=== PATIENT | female | born 1975 | race Caucasian/White ===

== ENCOUNTER 2019-11-12 14:36 | Emergency (ER) | payer MEDICARE ==
[~2019-11-12] VITALS: Ht 157.5 cm; Wt 73.0 kg
[2019-11-12] MEDS ORDERED: ONDANSETRON HCL 4MG/2ML INJ IV STA (16:26)
[2019-11-12] MEDS ORDERED: MORPHINE SULFATE 4 MG/ML CPJ (NOT FOR IM USE) IV STA (16:26)
[2019-11-12 18:18] VITALS: BP 108/78
[2019-11-12 19:03] LABS: BASOPHILS % 0.9 % (0.0-2.0); EOSINOPHILS % 2.2 % (0.0-5.0); HEMATOCRIT. 32.6 % (36.0-48.0); HEMOGLOBIN. 11.2 g/dL (12.0-16.0); LYMPHOCYTES % 30.6 % (20.0-50.0); MEAN CORPUSCULAR HEMOGLOBIN 31.9 pg (28.0-32.0); MEAN CORPUSCULAR VOLUME 92.7 fL (81.0-99.0); MEAN PLATELET VOLUME 8.7 fl (7.4-10.4); MONOCYTES % 7.3 % (2.0-8.0); PLATELET 144 x1000/uL (130-400); RED BLOOD CELL COUNT 3.51 mill/uL (4.2-5.4); RED CELL DISTRIBUTION WIDTH 13.7 % (11.6-14.6)
[2019-11-12 19:04] LABS: CHLORIDE 122 mEq/L (98-107)
[2019-11-12 19:05] LABS: HCG SCREEN NEGATIVE
[2019-11-12 19:08] LABS: INR 1.1; PROTHROMBIN TIME 11.2 sec (9.6-11.0)
[2019-11-12 19:10] LABS: CLARITY URINE TURBID (CLEAR); COLOR URINE YELLOW (YELLOW); KETONES URINE NEGATIVE (NEGATIVE); LEUKOCYTE ESTERASE URINE 2+ (NEGATIVE); NITRITE URINE NEGATIVE (NEGATIVE); OCCULT BLOOD URINE 3+ (NEGATIVE); PROTEIN URINE NEGATIVE (NEGATIVE); SPECIFIC GRAVITY URINE 1.021 (1.005-1.030)
[2019-11-12] MEDS ORDERED: ASPIRIN 325MG EC TABLET PO ONE (19:45)
== END 2019-11-12 20:39 | disposition home or self-care (01) ==
LOC: ER 14:36
DX: R10.84 Generalized abdominal pain (principal); Z90.49 Acquired absence of other specified parts of digestive tract; Z88.6 Allergy status to analgesic agent
CPT/HCPCS: 36415; 74176; 80053; 81003; 81025; 83690; 84703; 85025; 85610; 96374; 96375; 99284; J2270; J2405

== ENCOUNTER 2020-11-17 15:11 | Inpatient (IN) | payer OTHER ==
[~2020-11-17] VITALS: Ht 157.5 cm; Wt 70.3 kg
[~2020-11-17 15:11] MED LIST: CEPH250C2 MT; NAPR-1176 MT; ONDA4TAB5 MT; PROT20 MT
[2020-11-17] MEDS ORDERED: MORPHINE SULFATE 4 MG/ML CPJ (NOT FOR IM USE) IV STA (23:43)
[2020-11-17] MEDS ORDERED: ONDANSETRON HCL 4MG/2ML INJ IV STA (23:43)
[2020-11-17] MEDS ORDERED: SODIUM CHLORIDE 0.9% 1,000 ML IV ONE (23:45)
[2020-11-18 00:40] LABS: BASOPHILS % 0.9 % (0.0-2.0); HEMATOCRIT. 41.2 % (36.0-48.0); HEMOGLOBIN. 14.1 g/dL (12.0-16.0); LYMPHOCYTES % 38.5 % (20.0-50.0); MEAN CORPUSCULAR HEMOGLOBIN 31.4 pg (28.0-32.0); MEAN CORPUSCULAR VOLUME 91.8 fL (81.0-99.0); MEAN PLATELET VOLUME 8.1 fl (7.4-10.4); MONOCYTES % 6.8 % (2.0-8.0); NEUTROPHILS % 50.8 % (40.0-76.0); PLATELET 203 x1000/uL (130-400); RED BLOOD CELL COUNT 4.48 mill/uL (4.2-5.4); RED CELL DISTRIBUTION WIDTH 13.6 % (11.6-14.6)
[2020-11-18 00:42] LABS: CHLORIDE 113 mEq/L (98-107)
[2020-11-18 00:46] LABS: HCG SCREEN NEGATIVE
[2020-11-18 00:47] LABS: ETHANOL BLOOD < 10 mg/dL
[2020-11-18 01:23] LABS: PROTHROMBIN TIME 10.9 sec (9.6-11.0)
[2020-11-18 01:35] LABS: CLARITY URINE TURBID (CLEAR); COLOR URINE YELLOW (YELLOW); KETONES URINE TRACE (NEGATIVE); LEUKOCYTE ESTERASE URINE 2+ (NEGATIVE); NITRITE URINE NEGATIVE (NEGATIVE); OCCULT BLOOD URINE TRACE (NEGATIVE); PROTEIN URINE NEGATIVE (NEGATIVE)
[2020-11-18 01:45] LABS: *AMPHETAMINES SCREEN URINE NEGATIVE (NEGATIVE); *BARBITURATES SCREEN URINE NEGATIVE (NEGATIVE); *BENZODIAZEPINES SCREEN URINE NEGATIVE (NEGATIVE); *COCAINE SCREEN URINE NEGATIVE (NEGATIVE)
[2020-11-18 01:46] LABS: CANNABINOID URINE SCREEN NEGATIVE (NEGATIVE); METHADONE URINE SCREEN NEGATIVE (NEGATIVE); PHENCYCLIDINE URINE SCREEN NEGATIVE (NEGATIVE)
[2020-11-18 01:52] LABS: OPIATES URINE SCREEN PRESUMTIVE POSITIVE (NEGATIVE)
[2020-11-18] MEDS ORDERED: CEFTRIAXONE 1 G PREMIX 50 ML IV ONE (02:00)
[2020-11-18] MEDS ORDERED: MORPHINE SULFATE 4 MG/ML CPJ (NOT FOR IM USE) IV STA (02:06)
[2020-11-18] MEDS ORDERED: ONDANSETRON HCL 4MG/2ML INJ IV STA (02:06)
[2020-11-18] MEDS ORDERED: IOHEXOL-300 100 ML BOTTLE ONE (06:06)
[2020-11-18] MEDS: MORPHINE SULFATE 2 MG/ML CPJ (NOT FOR IM USE) IV PRN ×4 (06:56→20:39)
[2020-11-18] MEDS ORDERED: IPRATROPIUM/ALBUTEROL 0.5-3(2.5)MG/3ML NEB NEB PRN (10:30)
[2020-11-18] MEDS ORDERED: DIPHENHYDRAMINE 50MG/ML VIAL IV PRN (10:30)
[2020-11-18] MEDS: LEVOFLOXACIN 500MG PREMIX 100 ML IV SCH ×2 (10:30→11:28)
[2020-11-18] MEDS ORDERED: LORAZEPAM 0.5MG TABLET PO PRN (10:30)
[2020-11-18] MEDS ORDERED: ONDANSETRON HCL 4MG/2ML INJ IV PRN (10:30)
[2020-11-18] MEDS: DEXT 5%/0.45% NACL 1000ML 1,000 ML IV SCH ×2 (10:30→23:43)
[2020-11-18] MEDS ORDERED: NALOXONE HCL 0.4MG/ML VIAL IV PRN (10:45)
[2020-11-18] MEDS ORDERED: ENOXAPARIN 40MG/0.4ML SYR SUBCUT SCH (11:00)
[2020-11-18] MEDS: FAMOTIDINE 20MG/2ML VIAL IV SCH ×2 (11:28→20:39)
[2020-11-18 21:06] LABS: TOTAL IRON BINDING CAPACITY 246 ug/dL (250-450)
[2020-11-19] MEDS: MORPHINE SULFATE 2 MG/ML CPJ (NOT FOR IM USE) IV PRN ×5 (01:09→22:57)
[2020-11-19] MEDS: FAMOTIDINE 20MG/2ML VIAL IV SCH ×2 (09:00→21:03)
[2020-11-19] MEDS ORDERED: PROPOFOL 200MG/20ML VIAL IV ONE (11:02)
[2020-11-19] MEDS ORDERED: ONDANSETRON HCL 4MG/2ML INJ IV PRN (11:30)
[2020-11-19] MEDS ORDERED: MORPHINE SULFATE 2 MG/ML CPJ (NOT FOR IM USE) IV PRN (11:30)
[2020-11-19] MEDS ORDERED: PROT40 MT (12:59)
[2020-11-19] MEDS ORDERED: ONDA4TAB5 MT (12:59)
[2020-11-19 13:00] VITALS: BP 108/68
[2020-11-19 14:00] VITALS: BP 108/68
[2020-11-19] MEDS: DEXT 5%/0.45% NACL 1000ML 1,000 ML IV SCH (14:34)
[2020-11-19 16:00] VITALS: BP 102/70
[2020-11-19 16:55] LABS: BASOPHILS % 0.4 % (0.0-2.0); EOSINOPHILS % 3.6 % (0.0-5.0); HEMATOCRIT. 38.2 % (36.0-48.0); HEMOGLOBIN. 13.2 g/dL (12.0-16.0); LYMPHOCYTES % 27.2 % (20.0-50.0); MEAN CORPUSCULAR HEMOGLOBIN 32.4 pg (28.0-32.0); MEAN CORPUSCULAR VOLUME 93.6 fL (81.0-99.0); MEAN PLATELET VOLUME 7.8 fl (7.4-10.4); MONOCYTES % 6.7 % (2.0-8.0); NEUTROPHILS % 62.1 % (40.0-76.0); PLATELET 182 x1000/uL (130-400); RED BLOOD CELL COUNT 4.08 mill/uL (4.2-5.4); RED CELL DISTRIBUTION WIDTH 13.4 % (11.6-14.6)
[2020-11-19] MEDS ORDERED: ACETAMINOPHEN 325MG TABLET PO PRN (17:00)
[2020-11-19] MEDS ORDERED: ACETAMINOPHEN 650MG SUPP PR PRN (17:00)
[2020-11-19 17:01] LABS: INR 1.1; PROTHROMBIN TIME 11.4 sec (9.6-11.0)
[2020-11-19 17:16] LABS: CHLORIDE 114 mEq/L (98-107)
[2020-11-19 17:26] LABS: LDL CHOLESTEROL 79 mg/dL (5-100)
[2020-11-19 17:27] LABS: HDL CHOLESTEROL 52 mg/dL (40-59); T4 FREE 1.09 ng/dL (0.76-1.46)
[2020-11-19 20:00] VITALS: BP 107/76
[2020-11-19 23:48] VITALS: BP 107/76
[2020-11-20] VITALS: BP 93/67
[2020-11-20] MEDS: DEXT 5%/0.45% NACL 1000ML 1,000 ML IV SCH (02:54)
[2020-11-20] MEDS: MORPHINE SULFATE 2 MG/ML CPJ (NOT FOR IM USE) IV PRN (02:55)
[2020-11-20 04:00] VITALS: BP 103/73
== END 2020-11-20 06:10 | disposition home or self-care (01) | DRG 381 ==
LOC: ER 15:11 → MICUSO 11-18 04:49 → 6EST 11-19 09:02
PROVIDERS: ADMIT Internal Medicine; ATTEND Internal Medicine
PROC: 0DB78ZX Excision of Stomach, Pylorus, Via Natural or Artificial Opening Endoscopic, Diagnostic (ICD-10-PCS; principal; 2020-11-19)
DX: K22.11 Ulcer of esophagus with bleeding (principal); N39.0 Urinary tract infection, site not specified; K29.71 Gastritis, unspecified, with bleeding; Z20.822 Contact with and (suspected) exposure to COVID-19; D50.9 Iron deficiency anemia, unspecified; Z98.84 Bariatric surgery status; Z87.19 Personal history of other diseases of the digestive system; Z88.6 Allergy status to analgesic agent; Z88.5 Allergy status to narcotic agent; Z88.8 Allergy status to other drugs, medicaments and biological substances; Z79.2 Long term (current) use of antibiotics; Z79.899 Other long term (current) drug therapy; Z90.49 Acquired absence of other specified parts of digestive tract
CPT/HCPCS: 36415; 71045; 74177; 80053; 80061; 80305; 80320; 81003; 82728; 83540; 83550; 83880; 84439; 84443; 84703; 85025; 87426; 88305; 88312; 88313; 99285; J0696; J1650; J1956; J2270; J2405; J2704; J3490; J7030; Q9967; G0480

== ENCOUNTER 2021-11-04 12:47 | Inpatient (IN) | payer OTHER, MEDICAID ==
[~2021-11-04] VITALS: Ht 157.5 cm; Wt 72.1 kg
[~2021-11-04 12:47] MED LIST changes: -CEPH250C2 MT; +FOSF3PAC MT; -NAPR-1176 MT; -PROT20 MT; +PROT40 MT; +SUCR1TAB30 MT
[2021-11-04] MEDS ORDERED: MORPHINE SULFATE 4 MG/ML CPJ (NOT FOR IM USE) IV ONE ×2 (15:30→20:30)
[2021-11-04] MEDS ORDERED: ONDANSETRON HCL 4MG/2ML INJ IV ONE (15:30)
[2021-11-04 16:46] LABS: BASOPHILS % 0.4 % (0.0-2.0); EOSINOPHILS % 3.3 % (0.0-5.0); HEMATOCRIT. 25.4 % (36.0-48.0); HEMOGLOBIN. 8.4 g/dL (12.0-16.0); LYMPHOCYTES % 34.3 % (20.0-50.0); MEAN CORPUSCULAR HEMOGLOBIN 31.3 pg (28.0-32.0); MEAN CORPUSCULAR VOLUME 94.1 fL (81.0-99.0); MEAN PLATELET VOLUME 7.8 fl (7.4-10.4); MONOCYTES % 7.5 % (2.0-8.0); NEUTROPHILS % 54.5 % (40.0-76.0); PLATELET 112 x1000/uL (130-400); RED CELL DISTRIBUTION WIDTH 13.6 % (11.6-14.6)
[2021-11-04 16:52] LABS: CHLORIDE 112 mEq/L (98-107)
[2021-11-04 17:29] LABS: PROTHROMBIN TIME 10.9 sec (9.6-11.0)
[2021-11-04 18:41] LABS: CLARITY URINE TURBID (CLEAR); COLOR URINE YELLOW (YELLOW); KETONES URINE NEGATIVE (NEGATIVE); LEUKOCYTE ESTERASE URINE 3+ (NEGATIVE); NITRITE URINE NEGATIVE (NEGATIVE); OCCULT BLOOD URINE TRACE (NEGATIVE); PROTEIN URINE NEGATIVE (NEGATIVE); SPECIFIC GRAVITY URINE 1.015 (1.005-1.030)
[2021-11-04] MEDS ORDERED: MORPHINE SULFATE 4 MG/ML CPJ (NOT FOR IM USE) IV STA (20:29)
[2021-11-04] MEDS ORDERED: ONDANSETRON HCL 4MG/2ML INJ IV STA (20:29)
[2021-11-04] MEDS ORDERED: GENTAMICIN 60MG PREMIX 50 ML IV SCH (20:30)
[2021-11-04] MEDS ORDERED: ONDANSETRON HCL 4MG/2ML INJ IM ONE (20:30)
[2021-11-04] MEDS ORDERED: SODIUM CHLORIDE 0.9% 1,000 ML IV ONE (20:30)
[2021-11-04] MEDS ORDERED: ONDANSETRON HCL 4MG/2ML INJ IM NR (21:00)
[2021-11-04] MEDS ORDERED: GENTAMICIN SULFATE 60 MG in SODIUM CHLORIDE 0.9% 50 ML IV NR (21:00)
[2021-11-04] MEDS ORDERED: MORPHINE SULFATE 4 MG/ML CPJ (NOT FOR IM USE) IV NR (21:00)
[2021-11-04] MEDS: ENOXAPARIN 40MG/0.4ML SYR SUBCUT SCH (23:30)
[2021-11-04] MEDS ORDERED: DOCUSATE SODIUM 100MG CAPSULE PO PRN (23:30)
[2021-11-04] MEDS: SODIUM CHLORIDE 0.45% 1,000 ML IV SCH (23:30)
[2021-11-04] MEDS ORDERED: DIPHENHYDRAMINE 50MG/ML VIAL IV PRN (23:30)
[2021-11-04] MEDS ORDERED: MAGNESIUM/ALUMINUM HYDROXIDE/SIMETHICONE 30ML UDC PO PRN (23:30)
[2021-11-04] MEDS ORDERED: CLONIDINE 0.1MG TABLET PO PRN (23:30)
[2021-11-04] MEDS ORDERED: IPRATROPIUM/ALBUTEROL 0.5-3(2.5)MG/3ML NEB HHN PRN (23:30)
[2021-11-04] MEDS ORDERED: HYDRALAZINE 20MG/ML VIAL IV PRN (23:30)
[2021-11-04] MEDS ORDERED: GUAIFENESIN 200MG/10ML SUGAR FREE UDC PO PRN (23:30)
[2021-11-04 23:45] VITALS: BP 103/59
[2021-11-05] MEDS: MORPHINE SULFATE 2 MG/ML CPJ (NOT FOR IM USE) IV PRN ×4 (00:25→18:46)
[2021-11-05] MEDS: SODIUM CHLORIDE 0.45% 1,000 ML IV SCH ×2 (00:30→20:35)
[2021-11-05 04:00] VITALS: BP 105/67
[2021-11-05] MEDS: ONDANSETRON HCL 4MG/2ML INJ IV PRN ×3 (05:17→18:46)
[2021-11-05] MEDS: SODIUM CHLORIDE 0.9% INJ 3ML FLUSH IVF SCH ×3 (06:27→22:49)
[2021-11-05 07:42] LABS: CHLORIDE 112 mEq/L (98-107)
[2021-11-05 08:00] VITALS: BP 98/65
[2021-11-05 12:00] VITALS: BP 105/72
[2021-11-05 15:51] LABS: BASOPHILS % 0.7 % (0.0-2.0); EOSINOPHILS % 3.8 % (0.0-5.0); HEMATOCRIT. 38.1 % (36.0-48.0); HEMOGLOBIN. 12.9 g/dL (12.0-16.0); LYMPHOCYTES % 32.7 % (20.0-50.0); MEAN CORPUSCULAR HEMOGLOBIN 31.6 pg (28.0-32.0); MEAN CORPUSCULAR VOLUME 92.9 fL (81.0-99.0); MEAN PLATELET VOLUME 8.7 fl (7.4-10.4); MONOCYTES % 7.4 % (2.0-8.0); NEUTROPHILS % 55.4 % (40.0-76.0); PLATELET 155 x1000/uL (130-400); RED CELL DISTRIBUTION WIDTH 13.3 % (11.6-14.6)
[2021-11-05 16:22] VITALS: BP 102/64
[2021-11-05 16:53] LABS: TOTAL IRON BINDING CAPACITY 249 ug/dL (250-450)
[2021-11-05 17:08] LABS: *AMPHETAMINES SCREEN URINE NEGATIVE (NEGATIVE); *BARBITURATES SCREEN URINE NEGATIVE (NEGATIVE); *BENZODIAZEPINES SCREEN URINE NEGATIVE (NEGATIVE); *COCAINE SCREEN URINE NEGATIVE (NEGATIVE); CANNABINOID URINE SCREEN NEGATIVE (NEGATIVE); METHADONE URINE SCREEN NEGATIVE (NEGATIVE); PHENCYCLIDINE URINE SCREEN NEGATIVE (NEGATIVE)
[2021-11-05 17:18] LABS: FERRITIN 77 ng/mL (10-291)
[2021-11-05 17:21] LABS: OPIATES URINE SCREEN PRESUMTIVE POSITIVE (NEGATIVE)
[2021-11-05 17:25] LABS: VITAMIN B12 SERUM 576 pg/mL (211-911)
[2021-11-05 17:28] LABS: FOLIC ACID (FOLATE) SERUM > 20.00 ng/mL (>5.38)
[2021-11-05 20:00] VITALS: BP 101/69
[2021-11-05] MEDS: ENOXAPARIN 40MG/0.4ML SYR SUBCUT SCH (22:52)
[2021-11-06] VITALS: BP 100/65
[2021-11-06] MEDS: ONDANSETRON HCL 4MG/2ML INJ IV PRN ×4 (00:41→18:55)
[2021-11-06] MEDS: MORPHINE SULFATE 2 MG/ML CPJ (NOT FOR IM USE) IV PRN ×4 (00:42→19:09)
[2021-11-06 04:00] VITALS: BP 93/61
[2021-11-06] MEDS: SODIUM CHLORIDE 0.9% INJ 3ML FLUSH IVF SCH ×3 (05:24→22:45)
[2021-11-06 08:00] VITALS: BP 91/57
[2021-11-06 12:00] VITALS: BP 93/58
[2021-11-06] MEDS: SODIUM CHLORIDE 0.45% 1,000 ML IV SCH (15:30)
[2021-11-06 16:00] VITALS: BP 98/61
[2021-11-06 20:00] VITALS: BP 95/65
[2021-11-06] MEDS: ENOXAPARIN 40MG/0.4ML SYR SUBCUT SCH (22:45)
[2021-11-07] VITALS: BP 97/67
[2021-11-07] MEDS: MORPHINE SULFATE 2 MG/ML CPJ (NOT FOR IM USE) IV PRN ×4 (00:34→19:32)
[2021-11-07] MEDS: ONDANSETRON HCL 4MG/2ML INJ IV PRN ×4 (00:34→19:33)
[2021-11-07 04:00] VITALS: BP 105/63
[2021-11-07] MEDS: SODIUM CHLORIDE 0.9% INJ 3ML FLUSH IVF SCH ×3 (05:21→21:53)
[2021-11-07 06:27] LABS: BASOPHILS % 0.6 % (0.0-2.0); EOSINOPHILS % 6.2 % (0.0-5.0); HEMATOCRIT. 40.8 % (36.0-48.0); HEMOGLOBIN. 14.1 g/dL (12.0-16.0); LYMPHOCYTES % 30.7 % (20.0-50.0); MEAN CORPUSCULAR HEMOGLOBIN 31.5 pg (28.0-32.0); MEAN CORPUSCULAR VOLUME 91.5 fL (81.0-99.0); MONOCYTES % 8.1 % (2.0-8.0); NEUTROPHILS % 54.4 % (40.0-76.0); PLATELET 165 x1000/uL (130-400); RED BLOOD CELL COUNT 4.45 mill/uL (4.2-5.4); RED CELL DISTRIBUTION WIDTH 12.7 % (11.6-14.6)
[2021-11-07 06:35] LABS: INR 1.1; PROTHROMBIN TIME 11.3 sec (9.6-11.0)
[2021-11-07 07:08] LABS: CHLORIDE 107 mEq/L (98-107)
[2021-11-07 08:00] VITALS: BP 89/57
[2021-11-07] MEDS ORDERED: DEXTROSE 50% WATER 50ML SYRINGE IV NR (08:45)
[2021-11-07] MEDS: SODIUM CHLORIDE 0.45% 1,000 ML IV SCH (11:12)
[2021-11-07 12:00] VITALS: BP 100/68
[2021-11-07 14:20] LABS: HCG SCREEN NEGATIVE
[2021-11-07] MEDS ORDERED: ONDANSETRON HCL 4MG/2ML INJ ONE (14:54)
[2021-11-07] MEDS ORDERED: DEXAMETHASONE 4MG/ML 1ML VIAL ONE (14:54)
[2021-11-07] MEDS ORDERED: PROPOFOL 200MG/20ML VIAL IV ONE (14:55)
[2021-11-07] MEDS ORDERED: MORPHINE SULFATE 2 MG/ML CPJ (NOT FOR IM USE) IV NR (16:15)
[2021-11-07] MEDS ORDERED: ONDANSETRON HCL 4MG/2ML INJ IV NR (16:15)
[2021-11-07] MEDS ORDERED: NALOXONE HCL 0.4MG/ML VIAL IV PRN (16:30)
[2021-11-07] MEDS ORDERED: HYDRALAZINE 10 MG in SODIUM CHLORIDE 0.9% 49.5 ML IV PRN (16:30)
[2021-11-07 20:00] VITALS: BP 99/59
[2021-11-07] MEDS: ENOXAPARIN 40MG/0.4ML SYR SUBCUT SCH (23:30)
[2021-11-08] VITALS: BP 91/59
[2021-11-08] MEDS: MORPHINE SULFATE 2 MG/ML CPJ (NOT FOR IM USE) IV PRN ×4 (01:35→20:16)
[2021-11-08] MEDS: ONDANSETRON HCL 4MG/2ML INJ IV PRN ×4 (01:36→20:13)
[2021-11-08 04:00] VITALS: BP 102/67
[2021-11-08] MEDS: SODIUM CHLORIDE 0.9% INJ 3ML FLUSH IVF SCH ×3 (06:17→20:29)
[2021-11-08 08:00] VITALS: BP 96/60
[2021-11-08] MEDS: SODIUM CHLORIDE 0.45% 1,000 ML IV SCH (08:45)
[2021-11-08 16:00] VITALS: BP 93/59
[2021-11-08] MEDS: SUCRALFATE 1G TABLET PO SCH ×2 (17:20→20:25)
[2021-11-08 20:00] VITALS: BP 96/54
[2021-11-08] MEDS: PANTOPRAZOLE SODIUM 40 MG/VIAL IV SCH (20:28)
[2021-11-08] MEDS: ENOXAPARIN 40MG/0.4ML SYR SUBCUT SCH (23:12)
[2021-11-09] VITALS: BP 97/59
[2021-11-09] MEDS: SODIUM CHLORIDE 0.45% 1,000 ML IV SCH ×2 (03:30→23:39)
[2021-11-09] MEDS: SODIUM CHLORIDE 0.9% INJ 3ML FLUSH IVF SCH ×3 (06:07→21:24)
[2021-11-09] MEDS: ONDANSETRON HCL 4MG/2ML INJ IV PRN ×3 (06:08→19:05)
[2021-11-09] MEDS: MORPHINE SULFATE 2 MG/ML CPJ (NOT FOR IM USE) IV PRN ×3 (06:09→19:06)
[2021-11-09 07:32] LABS: BASOPHILS % 0.5 % (0.0-2.0); EOSINOPHILS % 3.9 % (0.0-5.0); HEMATOCRIT. 39.9 % (36.0-48.0); HEMOGLOBIN. 13.6 g/dL (12.0-16.0); LYMPHOCYTES % 30.7 % (20.0-50.0); MEAN CORPUSCULAR HEMOGLOBIN 31.2 pg (28.0-32.0); MEAN CORPUSCULAR VOLUME 91.4 fL (81.0-99.0); MEAN PLATELET VOLUME 8.4 fl (7.4-10.4); MONOCYTES % 7.1 % (2.0-8.0); NEUTROPHILS % 57.8 % (40.0-76.0); PLATELET 164 x1000/uL (130-400); RED BLOOD CELL COUNT 4.36 mill/uL (4.2-5.4); RED CELL DISTRIBUTION WIDTH 12.9 % (11.6-14.6)
[2021-11-09 07:53] LABS: CHLORIDE 107 mEq/L (98-107)
[2021-11-09 08:00] VITALS: BP 98/59
[2021-11-09] MEDS: PANTOPRAZOLE SODIUM 40 MG/VIAL IV SCH ×2 (09:47→21:24)
[2021-11-09 12:00] VITALS: BP 100/62
[2021-11-09] MEDS: SUCRALFATE 1 G/10 ML UDC PO SCH ×3 (12:20→21:24)
[2021-11-09 16:00] VITALS: BP 98/49
[2021-11-09 19:30] VITALS: BP 133/74
[2021-11-09 20:07] VITALS: BP 100/60
[2021-11-09] MEDS: ENOXAPARIN 40MG/0.4ML SYR SUBCUT SCH (23:30)
[2021-11-10] VITALS (7 sets, daily range): BP systolic 93–98; BP diastolic 52–63
[2021-11-10] MEDS: ONDANSETRON HCL 4MG/2ML INJ IV PRN ×4 (01:34→21:15)
[2021-11-10] MEDS: MORPHINE SULFATE 2 MG/ML CPJ (NOT FOR IM USE) IV PRN ×4 (01:36→21:15)
[2021-11-10] MEDS: SODIUM CHLORIDE 0.9% INJ 3ML FLUSH IVF SCH ×2 (05:07→13:00)
[2021-11-10] MEDS ORDERED: NALOXONE HCL 0.4MG/ML VIAL IV PRN (05:15)
[2021-11-10] MEDS: SUCRALFATE 1 G/10 ML UDC PO SCH ×3 (07:20→17:20)
[2021-11-10] MEDS: PANTOPRAZOLE SODIUM 40 MG/VIAL IV SCH (07:50)
[2021-11-10 09:07] LABS: CHLORIDE 107 mEq/L (98-107)
[2021-11-10] MEDS ORDERED: POTASSIUM CHLORIDE 20MEQ TABLET SR PO NR (11:30)
[2021-11-10] MEDS ORDERED: POTASSIUM CHLORIDE INJ 40 MEQ in DEXT 5% WATER 500 ML IV NR (14:00)
[2021-11-10 14:52] LABS: BASOPHILS % 0.7 % (0.0-2.0); EOSINOPHILS % 5.7 % (0.0-5.0); HEMATOCRIT. 37.5 % (36.0-48.0); LYMPHOCYTES % 24.1 % (20.0-50.0); MEAN CORPUSCULAR HEMOGLOBIN 31.6 pg (28.0-32.0); MEAN CORPUSCULAR VOLUME 91.4 fL (81.0-99.0); MEAN PLATELET VOLUME 8.5 fl (7.4-10.4); MONOCYTES % 7.1 % (2.0-8.0); NEUTROPHILS % 62.4 % (40.0-76.0); PLATELET 151 x1000/uL (130-400); RED BLOOD CELL COUNT 4.11 mill/uL (4.2-5.4); RED CELL DISTRIBUTION WIDTH 12.7 % (11.6-14.6)
== END 2021-11-11 00:45 | disposition home or self-care (01) | DRG 392 ==
LOC: ER 13:48 → ENRESERV 22:50 → 6EST 22:52
PROVIDERS: ADMIT Internal Medicine; ATTEND Internal Medicine
PROC: 0DB78ZX Excision of Stomach, Pylorus, Via Natural or Artificial Opening Endoscopic, Diagnostic (ICD-10-PCS; principal; 2021-11-07)
DX: K20.90 Esophagitis, unspecified without bleeding (principal); N39.0 Urinary tract infection, site not specified; E44.1 Mild protein-calorie malnutrition; K29.50 Unspecified chronic gastritis without bleeding; K44.9 Diaphragmatic hernia without obstruction or gangrene; N20.0 Calculus of kidney; D50.9 Iron deficiency anemia, unspecified; E86.0 Dehydration; D72.819 Decreased white blood cell count, unspecified; Z20.822 Contact with and (suspected) exposure to COVID-19; Z98.84 Bariatric surgery status; Z90.49 Acquired absence of other specified parts of digestive tract; Z88.1 Allergy status to other antibiotic agents; Z97.5 Presence of (intrauterine) contraceptive device; Z87.19 Personal history of other diseases of the digestive system; Z98.891 History of uterine scar from previous surgery; Z88.0 Allergy status to penicillin; Z88.2 Allergy status to sulfonamides; Z88.6 Allergy status to analgesic agent; Z88.8 Allergy status to other drugs, medicaments and biological substances; Z79.899 Other long term (current) drug therapy; Z68.29 Body mass index [BMI] 29.0-29.9, adult
CPT/HCPCS: 36415; 74176; 80048; 80053; 80305; 81003; 82607; 82728; 82746; 82962; 83540; 83550; 84703; 85025; 85044; 87426; 88305; 88312; 88313; 99285; C9113; J1100; J1580; J1642; J1650; J2270; J2405; J2704; J3480; J7030; J7060

== ENCOUNTER 2021-12-19 16:12 | Inpatient (IN) | payer OTHER, MEDICAID ==
[~2021-12-19] VITALS: Ht 157.5 cm; Wt 72.6 kg
[2021-12-19] MEDS ORDERED: ONDANSETRON HCL 4MG/2ML INJ IV STA ×2 (18:02→20:48)
[2021-12-19] MEDS ORDERED: MORPHINE SULFATE 4 MG/ML CPJ (NOT FOR IM USE) IV STA ×2 (18:02→20:48)
[2021-12-19] MEDS ORDERED: SODIUM CHLORIDE 0.9% 1,000 ML IV ONE (18:15)
[2021-12-19 20:09] LABS: BASOPHILS % 0.5 % (0.0-2.0); EOSINOPHILS % 2.2 % (0.0-5.0); HEMATOCRIT. 40.8 % (36.0-48.0); HEMOGLOBIN. 13.2 g/dL (12.0-16.0); LYMPHOCYTES % 28.7 % (20.0-50.0); MEAN CORPUSCULAR HEMOGLOBIN 30.7 pg (28.0-32.0); MEAN PLATELET VOLUME 8.4 fl (7.4-10.4); MONOCYTES % 8.7 % (2.0-8.0); NEUTROPHILS % 59.9 % (40.0-76.0); PLATELET 197 x1000/uL (130-400); RED BLOOD CELL COUNT 4.29 mill/uL (4.2-5.4); RED CELL DISTRIBUTION WIDTH 13.3 % (11.6-14.6)
[2021-12-19 20:18] LABS: CHLORIDE 116 mEq/L (98-107)
[2021-12-19 20:22] LABS: HCG SCREEN NEGATIVE
[2021-12-19 20:24] LABS: CLARITY URINE TURBID (CLEAR); COLOR URINE YELLOW (YELLOW); KETONES URINE NEGATIVE (NEGATIVE); LEUKOCYTE ESTERASE URINE 2+ (NEGATIVE); NITRITE URINE NEGATIVE (NEGATIVE); OCCULT BLOOD URINE NEGATIVE (NEGATIVE); PH URINE 8.5 (4.5-8.0); PROTEIN URINE NEGATIVE (NEGATIVE); SPECIFIC GRAVITY URINE 1.015 (1.005-1.030)
[2021-12-19 20:27] LABS: ETHANOL BLOOD < 10 mg/dL
[2021-12-19 20:36] LABS: *AMPHETAMINES SCREEN URINE NEGATIVE (NEGATIVE); *BARBITURATES SCREEN URINE NEGATIVE (NEGATIVE); *BENZODIAZEPINES SCREEN URINE NEGATIVE (NEGATIVE); *COCAINE SCREEN URINE NEGATIVE (NEGATIVE); CANNABINOID URINE SCREEN NEGATIVE (NEGATIVE); METHADONE URINE SCREEN NEGATIVE (NEGATIVE); PHENCYCLIDINE URINE SCREEN NEGATIVE (NEGATIVE)
[2021-12-19 20:37] LABS: OPIATES URINE SCREEN PRESUMTIVE POSITIVE (NEGATIVE)
[2021-12-19] MEDS ORDERED: GENTAMICIN SULFATE 80 MG in SODIUM CHLORIDE 0.9% 100 ML IV STA (22:12)
[2021-12-19] MEDS ORDERED: GENTAMICIN 80MG PREMIX 100 ML IV NR (22:45)
[2021-12-20] VITALS (7 sets, daily range): BP systolic 90–109; BP diastolic 55–65
[2021-12-20] MEDS ORDERED: LACTULOSE 20G/30ML UDC PO PRN (00:30)
[2021-12-20] MEDS ORDERED: LACTULOSE 20G/30ML UDC PO NR (00:30)
[2021-12-20] MEDS ORDERED: ONDANSETRON HCL 4MG/2ML INJ IV PRN (00:30)
[2021-12-20] MEDS ORDERED: MORPHINE SULFATE 2 MG/ML CPJ (NOT FOR IM USE) IV PRN (00:30)
[2021-12-20] MEDS ORDERED: MULT-1146 PO (01:46)
[2021-12-20] MEDS: MORPHINE SULFATE 2 MG/ML CPJ (NOT FOR IM USE) IV PRN ×3 (06:26→18:45)
[2021-12-20] MEDS ORDERED: PANTOPRAZOLE 40MG DR TABLET PO SCH (09:00)
[2021-12-20] MEDS: GENTAMICIN 100MG PREMIX 50 ML IV SCH ×2 (12:47→21:34)
[2021-12-20] MEDS: PANTOPRAZOLE SODIUM 40 MG/VIAL IV SCH (17:25)
[2021-12-20 20:21] LABS: BASOPHILS % 0.6 % (0.0-2.0); EOSINOPHILS % 3.1 % (0.0-5.0); HEMATOCRIT. 39.8 % (36.0-48.0); HEMOGLOBIN. 13.2 g/dL (12.0-16.0); LYMPHOCYTES % 27.7 % (20.0-50.0); MEAN CORPUSCULAR HEMOGLOBIN 31.1 pg (28.0-32.0); MEAN CORPUSCULAR VOLUME 94.2 fL (81.0-99.0); MEAN PLATELET VOLUME 8.2 fl (7.4-10.4); MONOCYTES % 7.6 % (2.0-8.0); PLATELET 183 x1000/uL (130-400); RED BLOOD CELL COUNT 4.23 mill/uL (4.2-5.4); RED CELL DISTRIBUTION WIDTH 13.1 % (11.6-14.6)
[2021-12-20] MEDS ORDERED: DIPHENHYDRAMINE 25MG CAPSULE PO PRN (23:30)
[2021-12-21] VITALS: BP 90/62
[2021-12-21] MEDS: DIPHENHYDRAMINE 50MG/ML VIAL IV PRN ×2 (00:46→21:59)
[2021-12-21] MEDS: MORPHINE SULFATE 2 MG/ML CPJ (NOT FOR IM USE) IV PRN ×4 (02:53→21:52)
[2021-12-21 04:00] VITALS: BP 96/65
[2021-12-21 07:26] LABS: CHLORIDE 110 mEq/L (98-107)
[2021-12-21 07:41] LABS: GENTAMICIN RANDOM 1.5 ug/mL
[2021-12-21 08:00] VITALS: BP 99/62
[2021-12-21] MEDS: GENTAMICIN 100MG PREMIX 50 ML IV SCH ×2 (09:04→20:59)
[2021-12-21] MEDS: PANTOPRAZOLE SODIUM 40 MG/VIAL IV SCH ×2 (09:04→16:43)
[2021-12-21 12:00] VITALS: BP 93/63
[2021-12-21] MEDS: SODIUM CHLORIDE 0.9% 1,000 ML IV SCH (15:47)
[2021-12-21 16:00] VITALS: BP 92/57
[2021-12-21 20:00] VITALS: BP 91/54
[2021-12-22] VITALS: BP 92/60
[2021-12-22] MEDS: MORPHINE SULFATE 2 MG/ML CPJ (NOT FOR IM USE) IV PRN ×4 (03:59→22:17)
[2021-12-22 04:00] VITALS: BP 93/61
[2021-12-22] MEDS: SODIUM CHLORIDE 0.9% 1,000 ML IV SCH (06:13)
[2021-12-22 07:58] LABS: BASOPHILS % 0.5 % (0.0-2.0); EOSINOPHILS % 3.2 % (0.0-5.0); HEMATOCRIT. 38.3 % (36.0-48.0); HEMOGLOBIN. 12.8 g/dL (12.0-16.0); LYMPHOCYTES % 36.2 % (20.0-50.0); MEAN CORPUSCULAR HEMOGLOBIN 30.8 pg (28.0-32.0); MEAN CORPUSCULAR VOLUME 92.1 fL (81.0-99.0); MEAN PLATELET VOLUME 8.1 fl (7.4-10.4); MONOCYTES % 9.8 % (2.0-8.0); NEUTROPHILS % 50.3 % (40.0-76.0); PLATELET 164 x1000/uL (130-400); RED BLOOD CELL COUNT 4.16 mill/uL (4.2-5.4); RED CELL DISTRIBUTION WIDTH 12.7 % (11.6-14.6)
[2021-12-22 08:00] VITALS: BP 94/58
[2021-12-22 08:06] LABS: INR 1.1; PROTHROMBIN TIME 11.4 sec (9.6-11.0)
[2021-12-22 08:13] LABS: CHLORIDE 109 mEq/L (98-107)
[2021-12-22] MEDS: PANTOPRAZOLE SODIUM 40 MG/VIAL IV SCH ×2 (08:44→16:12)
[2021-12-22] MEDS: GENTAMICIN 100MG PREMIX 50 ML IV SCH (08:44)
[2021-12-22] MEDS: DEXT 5%/0.9% NACL 1,000 ML IV SCH (09:31)
[2021-12-22] MEDS ORDERED: DEXTROSE 50% WATER 50ML SYRINGE IV NR (09:45)
[2021-12-22] MEDS ORDERED: PROPOFOL 200MG/20ML VIAL IV ONE ×2 (10:31→11:14)
[2021-12-22] MEDS ORDERED: SIMETHICONE 40 MG/0.6 ML 15ML ONE (10:40)
[2021-12-22] MEDS: MEPERIDINE HCL/PF 25MG/ML CPJ IV PRN ×2 (11:55→12:15)
[2021-12-22 12:00] VITALS: BP 98/63
[2021-12-22] MEDS: SUCRALFATE 1 G/10 ML UDC PO SCH ×4 (12:10→21:00)
[2021-12-22 16:00] VITALS: BP 94/57
[2021-12-22] MEDS ORDERED: DEXTROSE 50% WATER 50ML SYRINGE IV PRN (17:15)
[2021-12-22] MEDS: METOCLOPRAMIDE HCL 10MG/2ML VIAL IV SCH ×2 (17:18→21:00)
[2021-12-22] MEDS: BLOOD SUGAR DIAGNOSTIC STRIP TEST SCH ×2 (17:26→21:00)
[2021-12-22 20:00] VITALS: BP 97/55
[2021-12-22] MEDS: DIPHENHYDRAMINE 50MG/ML VIAL IV PRN (22:18)
[2021-12-23 00:18] VITALS: BP 92/62
[2021-12-23] MEDS: DEXT 5%/0.9% NACL 1,000 ML IV SCH ×2 (02:11→12:10)
[2021-12-23 04:00] VITALS: BP 98/65
[2021-12-23] MEDS: MORPHINE SULFATE 2 MG/ML CPJ (NOT FOR IM USE) IV PRN ×4 (04:20→20:05)
[2021-12-23] MEDS: METOCLOPRAMIDE HCL 10MG/2ML VIAL IV SCH ×4 (06:21→21:00)
[2021-12-23] MEDS: BLOOD SUGAR DIAGNOSTIC STRIP TEST SCH ×4 (06:22→21:01)
[2021-12-23] MEDS: SUCRALFATE 1 G/10 ML UDC PO SCH ×4 (06:22→21:00)
[2021-12-23 08:00] VITALS: BP 91/57
[2021-12-23] MEDS: PANTOPRAZOLE SODIUM 40 MG/VIAL IV SCH ×2 (10:34→15:50)
[2021-12-23 12:00] VITALS: BP 96/51
[2021-12-23] MEDS ORDERED: NALOXONE HCL 0.4MG/ML VIAL IV PRN (15:15)
[2021-12-23 16:00] VITALS: BP 106/51
[2021-12-23 16:10] LABS: BASOPHILS % 0.5 % (0.0-2.0); EOSINOPHILS % 2.5 % (0.0-5.0); HEMATOCRIT. 35.8 % (36.0-48.0); HEMOGLOBIN. 12.2 g/dL (12.0-16.0); LYMPHOCYTES % 22.1 % (20.0-50.0); MEAN CORPUSCULAR HEMOGLOBIN 30.9 pg (28.0-32.0); MEAN CORPUSCULAR VOLUME 90.6 fL (81.0-99.0); MONOCYTES % 8.8 % (2.0-8.0); NEUTROPHILS % 66.1 % (40.0-76.0); PLATELET 165 x1000/uL (130-400); RED BLOOD CELL COUNT 3.95 mill/uL (4.2-5.4); RED CELL DISTRIBUTION WIDTH 12.7 % (11.6-14.6)
[2021-12-23 16:34] LABS: CHLORIDE 112 mEq/L (98-107)
[2021-12-23] MEDS ORDERED: POTASSIUM CHLORIDE 20MEQ TABLET SR PO NR (19:45)
[2021-12-23 20:00] VITALS: BP 101/58
[2021-12-23] MEDS ORDERED: POTASSIUM CHLORIDE INJ 40 MEQ in DEXT 5% WATER 250 ML IV ONE (21:00)
[2021-12-23] MEDS ORDERED: KCL 20MEQ/100ML X 2 FOR TOTAL KCL 40MEQ/200ML IV SCH (22:00)
[2021-12-24] VITALS: BP 97/65
[2021-12-24] MEDS: DIPHENHYDRAMINE 50MG/ML VIAL IV PRN ×2 (00:08→22:14)
[2021-12-24] MEDS: MORPHINE SULFATE 2 MG/ML CPJ (NOT FOR IM USE) IV PRN ×6 (00:09→22:12)
[2021-12-24] MEDS: DEXT 5%/0.9% NACL 1,000 ML IV SCH ×2 (01:30→14:50)
[2021-12-24 04:00] VITALS: BP 91/61
[2021-12-24] MEDS: BLOOD SUGAR DIAGNOSTIC STRIP TEST SCH ×4 (06:39→21:00)
[2021-12-24] MEDS: SUCRALFATE 1 G/10 ML UDC PO SCH ×4 (06:39→21:00)
[2021-12-24] MEDS: METOCLOPRAMIDE HCL 10MG/2ML VIAL IV SCH ×4 (06:39→21:00)
[2021-12-24 06:41] LABS: BASOPHILS % 0.5 % (0.0-2.0); EOSINOPHILS % 4.1 % (0.0-5.0); HEMATOCRIT. 34.9 % (36.0-48.0); HEMOGLOBIN. 11.8 g/dL (12.0-16.0); LYMPHOCYTES % 40.6 % (20.0-50.0); MEAN CORPUSCULAR HEMOGLOBIN 30.9 pg (28.0-32.0); MEAN CORPUSCULAR VOLUME 91.5 fL (81.0-99.0); MEAN PLATELET VOLUME 8.2 fl (7.4-10.4); MONOCYTES % 9.9 % (2.0-8.0); NEUTROPHILS % 44.9 % (40.0-76.0); PLATELET 158 x1000/uL (130-400); RED BLOOD CELL COUNT 3.81 mill/uL (4.2-5.4); RED CELL DISTRIBUTION WIDTH 12.9 % (11.6-14.6)
[2021-12-24 06:58] LABS: CHLORIDE 110 mEq/L (98-107)
[2021-12-24 08:00] VITALS: BP 99/62
[2021-12-24] MEDS: PANTOPRAZOLE SODIUM 40 MG/VIAL IV SCH ×2 (09:05→17:58)
[2021-12-24 12:00] VITALS: BP 103/59
[2021-12-24 16:00] VITALS: BP 108/65
[2021-12-25] MEDS: MORPHINE SULFATE 2 MG/ML CPJ (NOT FOR IM USE) IV PRN ×5 (02:20→22:49)
[2021-12-25 03:29] VITALS: BP 119/57
[2021-12-25] MEDS: DEXT 5%/0.9% NACL 1,000 ML IV SCH ×2 (04:10→17:31)
[2021-12-25 06:55] LABS: CHLORIDE 112 mEq/L (98-107)
[2021-12-25] MEDS: SUCRALFATE 1 G/10 ML UDC PO SCH ×4 (07:10→21:00)
[2021-12-25] MEDS: BLOOD SUGAR DIAGNOSTIC STRIP TEST SCH ×4 (07:10→21:00)
[2021-12-25] MEDS: METOCLOPRAMIDE HCL 10MG/2ML VIAL IV SCH ×4 (07:10→21:00)
[2021-12-25 08:00] VITALS: BP 85/60
[2021-12-25] MEDS: PANTOPRAZOLE SODIUM 40 MG/VIAL IV SCH ×2 (09:07→17:30)
[2021-12-25 12:00] VITALS: BP 102/55
[2021-12-25 16:00] VITALS: BP 92/62
[2021-12-25 16:22] LABS: BASOPHILS % 0.6 % (0.0-2.0); EOSINOPHILS % 4.3 % (0.0-5.0); HEMATOCRIT. 37.5 % (36.0-48.0); HEMOGLOBIN. 12.5 g/dL (12.0-16.0); LYMPHOCYTES % 32.3 % (20.0-50.0); MEAN CORPUSCULAR HEMOGLOBIN 31.2 pg (28.0-32.0); MEAN CORPUSCULAR VOLUME 93.6 fL (81.0-99.0); MEAN PLATELET VOLUME 8.5 fl (7.4-10.4); MONOCYTES % 10.8 % (2.0-8.0); PLATELET 153 x1000/uL (130-400)
[2021-12-25 20:00] VITALS: BP 126/67
[2021-12-25] MEDS: DIPHENHYDRAMINE 50MG/ML VIAL IV PRN (22:56)
[2021-12-26] VITALS: BP 81/55
[2021-12-26] MEDS: MORPHINE SULFATE 2 MG/ML CPJ (NOT FOR IM USE) IV PRN ×5 (03:06→21:38)
[2021-12-26] MEDS: DEXT 5%/0.9% NACL 1,000 ML IV SCH ×2 (03:13→20:19)
[2021-12-26 04:00] VITALS: BP 117/68
[2021-12-26 07:56] VITALS: BP 118/69
[2021-12-26] MEDS: BLOOD SUGAR DIAGNOSTIC STRIP TEST SCH ×4 (08:38→20:22)
[2021-12-26] MEDS: PANTOPRAZOLE SODIUM 40 MG/VIAL IV SCH ×2 (08:39→17:23)
[2021-12-26] MEDS: SUCRALFATE 1 G/10 ML UDC PO SCH ×4 (08:39→20:23)
[2021-12-26] MEDS: METOCLOPRAMIDE HCL 10MG/2ML VIAL IV SCH (08:40)
[2021-12-26 11:50] VITALS: BP 115/72
[2021-12-26] MEDS ORDERED: KCL 10MEQ/50ML PREMIX 50 ML IV SCH (12:00)
[2021-12-26 16:00] VITALS: BP 122/76
[2021-12-26 19:45] VITALS: BP 124/80
[2021-12-26] MEDS: DIPHENHYDRAMINE 50MG/ML VIAL IV PRN (21:39)
[2021-12-27 00:08] VITALS: BP 127/67
[2021-12-27] MEDS: DIPHENHYDRAMINE 50MG/ML VIAL IV PRN (02:30)
[2021-12-27] MEDS: MORPHINE SULFATE 2 MG/ML CPJ (NOT FOR IM USE) IV PRN ×5 (02:32→21:11)
[2021-12-27 04:00] VITALS: BP 112/61
[2021-12-27 06:40] LABS: BASOPHILS % 0.5 % (0.0-2.0); EOSINOPHILS % 5.6 % (0.0-5.0); HEMATOCRIT. 35.1 % (36.0-48.0); HEMOGLOBIN. 11.8 g/dL (12.0-16.0); LYMPHOCYTES % 36.6 % (20.0-50.0); MEAN CORPUSCULAR HEMOGLOBIN 30.6 pg (28.0-32.0); MEAN PLATELET VOLUME 8.3 fl (7.4-10.4); MONOCYTES % 8.4 % (2.0-8.0); NEUTROPHILS % 48.9 % (40.0-76.0); PLATELET 166 x1000/uL (130-400); RED BLOOD CELL COUNT 3.86 mill/uL (4.2-5.4); RED CELL DISTRIBUTION WIDTH 12.7 % (11.6-14.6)
[2021-12-27 07:06] LABS: CHLORIDE 113 mEq/L (98-107)
[2021-12-27 08:00] VITALS: BP 143/79
[2021-12-27] MEDS: BLOOD SUGAR DIAGNOSTIC STRIP TEST SCH ×4 (08:23→21:33)
[2021-12-27] MEDS: PANTOPRAZOLE SODIUM 40 MG/VIAL IV SCH ×2 (08:28→17:56)
[2021-12-27] MEDS: SUCRALFATE 1 G/10 ML UDC PO SCH ×4 (08:29→21:00)
[2021-12-27] MEDS: DEXT 5%/0.9% NACL 1,000 ML IV SCH ×2 (08:34→22:29)
[2021-12-27 12:00] VITALS: BP 138/79
[2021-12-27 16:00] VITALS: BP 138/80
[2021-12-27 20:00] VITALS: BP 155/96
[2021-12-28] VITALS: BP 164/83
[2021-12-28] MEDS: MORPHINE SULFATE 2 MG/ML CPJ (NOT FOR IM USE) IV PRN ×5 (00:03→17:14)
[2021-12-28] MEDS: DIPHENHYDRAMINE 50MG/ML VIAL IV PRN ×4 (00:04→23:09)
[2021-12-28 04:15] VITALS: BP 133/67
[2021-12-28 08:00] VITALS: BP 147/81
[2021-12-28] MEDS: BLOOD SUGAR DIAGNOSTIC STRIP TEST SCH ×4 (08:41→21:00)
[2021-12-28] MEDS: PANTOPRAZOLE SODIUM 40 MG/VIAL IV SCH ×2 (08:53→17:13)
[2021-12-28] MEDS: SUCRALFATE 1 G/10 ML UDC PO SCH ×4 (09:00→21:00)
[2021-12-28 10:06] LABS: CHLORIDE 116 mEq/L (98-107)
[2021-12-28] MEDS: DEXT 5%/0.9% NACL 1,000 ML IV SCH (11:49)
[2021-12-28 12:00] VITALS: BP 135/74
[2021-12-28 12:53] LABS: BASOPHILS % 0.4 % (0.0-2.0); EOSINOPHILS % 7.8 % (0.0-5.0); HEMOGLOBIN. 12.2 g/dL (12.0-16.0); LYMPHOCYTES % 38.5 % (20.0-50.0); MEAN CORPUSCULAR VOLUME 91.8 fL (81.0-99.0); MEAN PLATELET VOLUME 8.2 fl (7.4-10.4); MONOCYTES % 8.2 % (2.0-8.0); NEUTROPHILS % 45.1 % (40.0-76.0); PLATELET 148 x1000/uL (130-400); RED BLOOD CELL COUNT 3.92 mill/uL (4.2-5.4); RED CELL DISTRIBUTION WIDTH 12.7 % (11.6-14.6)
[2021-12-28 16:00] VITALS: BP 134/77
[2021-12-28 20:00] VITALS: BP 142/79
[2021-12-29] VITALS (7 sets, daily range): BP systolic 99–156; BP diastolic 53–84
[2021-12-29] MEDS: DEXT 5%/0.9% NACL 1,000 ML IV SCH ×2 (01:30→12:41)
[2021-12-29] MEDS: DIPHENHYDRAMINE 50MG/ML VIAL IV PRN ×3 (05:19→18:41)
[2021-12-29] MEDS: MORPHINE SULFATE 2 MG/ML CPJ (NOT FOR IM USE) IV PRN ×4 (05:20→18:41)
[2021-12-29] MEDS: SUCRALFATE 1 G/10 ML UDC PO SCH ×4 (09:00→21:00)
[2021-12-29] MEDS: BLOOD SUGAR DIAGNOSTIC STRIP TEST SCH ×4 (09:00→21:00)
[2021-12-29] MEDS: PANTOPRAZOLE SODIUM 40 MG/VIAL IV SCH ×2 (09:19→18:41)
[2021-12-29 16:24] LABS: BASOPHILS % 0.9 % (0.0-2.0); EOSINOPHILS % 6.9 % (0.0-5.0); HEMATOCRIT. 38.4 % (36.0-48.0); LYMPHOCYTES % 33.2 % (20.0-50.0); MEAN CORPUSCULAR HEMOGLOBIN 31.5 pg (28.0-32.0); MEAN CORPUSCULAR VOLUME 93.1 fL (81.0-99.0); MEAN PLATELET VOLUME 8.7 fl (7.4-10.4); MONOCYTES % 6.6 % (2.0-8.0); NEUTROPHILS % 52.4 % (40.0-76.0); PLATELET 151 x1000/uL (130-400); RED BLOOD CELL COUNT 4.13 mill/uL (4.2-5.4); RED CELL DISTRIBUTION WIDTH 12.9 % (11.6-14.6)
[2021-12-29 16:35] LABS: CHLORIDE 114 mEq/L (98-107)
[2021-12-30] MEDS: MORPHINE SULFATE 2 MG/ML CPJ (NOT FOR IM USE) IV PRN (00:41)
[2021-12-30] MEDS: DIPHENHYDRAMINE 50MG/ML VIAL IV PRN ×2 (00:41→06:41)
[2021-12-30] MEDS: DEXT 5%/0.9% NACL 1,000 ML IV SCH (01:49)
[2021-12-30] MEDS ORDERED: MORPHINE SULFATE 2 MG/ML CPJ (NOT FOR IM USE) IV PRN (06:45)
[2021-12-30] MEDS: BLOOD SUGAR DIAGNOSTIC STRIP TEST SCH ×2 (06:58→13:00)
[2021-12-30 08:00] VITALS: BP 118/71
[2021-12-30] MEDS: SUCRALFATE 1 G/10 ML UDC PO SCH ×2 (09:00→13:00)
[2021-12-30] MEDS: PANTOPRAZOLE SODIUM 40 MG/VIAL IV SCH (09:09)
[2021-12-30] MEDS ORDERED: ONDANSETRON HCL 4MG/2ML INJ IV SCH (11:45)
[2021-12-30] MEDS ORDERED: HYDROCODONE/ACETAMINOPHEN 5/325MG TABLET PO PRN (11:45)
== END 2021-12-30 13:25 | disposition left against medical advice (07) | DRG 392 ==
LOC: ER 16:12 → 8WST 22:12 → EDBEDREQ 22:18 → EDBEDREQTM 22:18 → ENRESERV 22:41 → 4WST 12-25 20:08
PROVIDERS: ADMIT Internal Medicine; ATTEND Internal Medicine
PROC: 0D748ZZ Dilation of Esophagogastric Junction, Via Natural or Artificial Opening Endoscopic (ICD-10-PCS; principal; 2021-12-22)
PROC: 0DB98ZX Excision of Duodenum, Via Natural or Artificial Opening Endoscopic, Diagnostic (ICD-10-PCS; 2021-12-22)
PROC: 0DB68ZX Excision of Stomach, Via Natural or Artificial Opening Endoscopic, Diagnostic (ICD-10-PCS; 2021-12-22)
PROC: 0DB58ZX Excision of Esophagus, Via Natural or Artificial Opening Endoscopic, Diagnostic (ICD-10-PCS; 2021-12-22)
DX: K22.2 Esophageal obstruction (principal); N39.0 Urinary tract infection, site not specified; K29.70 Gastritis, unspecified, without bleeding; K44.9 Diaphragmatic hernia without obstruction or gangrene; K57.90 Diverticulosis of intestine, part unspecified, without perforation or abscess without bleeding; D64.9 Anemia, unspecified; E16.2 Hypoglycemia, unspecified; K20.80 Other esophagitis without bleeding; R63.30 Feeding difficulties, unspecified; Z20.822 Contact with and (suspected) exposure to COVID-19; K30 Functional dyspepsia; G89.29 Other chronic pain; Z53.29 Procedure and treatment not carried out because of patient's decision for other reasons; R62.7 Adult failure to thrive; Z98.84 Bariatric surgery status; Z88.0 Allergy status to penicillin; Z90.49 Acquired absence of other specified parts of digestive tract; Z88.1 Allergy status to other antibiotic agents; Z98.891 History of uterine scar from previous surgery; Z88.2 Allergy status to sulfonamides; Z88.8 Allergy status to other drugs, medicaments and biological substances; Z68.29 Body mass index [BMI] 29.0-29.9, adult
CPT/HCPCS: 36415; 71045; 74176; 78265; 80048; 80053; 80170; 80305; 80320; 81003; 82962; 83036; 84132; 84439; 84443; 84703; 85025; 87426; 88305; 88312; 88313; 93005; 99285; C9113; J1200; J1580; J2175; J2270; J2405; J2704; J2765; J3480; J7030; J7042; J7050; Q0163; G0480

== ENCOUNTER 2022-09-09 15:35 | Emergency (ER) | payer OTHER, MEDICAID, MEDICARE ==
[~2022-09-09] VITALS: Ht 157.5 cm; Wt 73.0 kg
[~2022-09-09 15:35] MED LIST changes: +MULT-1146 PO
[2022-09-09] MEDS ORDERED: MORPHINE SULFATE 4 MG/ML CPJ (NOT FOR IM USE) IV STA (17:28)
[2022-09-09] MEDS ORDERED: ONDANSETRON HCL 4MG/2ML INJ IV STA (17:28)
[2022-09-09 18:02] LABS: BASOPHILS % 0.4 % (0.0-2.0); EOSINOPHILS % 2.6 % (0.0-5.0); HEMATOCRIT. 39.8 % (36.0-48.0); HEMOGLOBIN. 13.5 g/dL (12.0-16.0); LYMPHOCYTES % 20.2 % (20.0-50.0); MEAN CORPUSCULAR HEMOGLOBIN 31.3 pg (28.0-32.0); MEAN CORPUSCULAR VOLUME 92.4 fL (81.0-99.0); MONOCYTES % 5.6 % (2.0-8.0); NEUTROPHILS % 71.2 % (40.0-76.0); PLATELET 232 x1000/uL (130-400); RED BLOOD CELL COUNT 4.31 mill/uL (4.2-5.4); RED CELL DISTRIBUTION WIDTH 13.8 % (11.6-14.6)
[2022-09-09 18:12] LABS: CHLORIDE 112 mEq/L (98-107)
[2022-09-09 18:25] LABS: HCG SCREEN NEGATIVE
[2022-09-09 18:51] LABS: CLARITY URINE TURBID (CLEAR); COLOR URINE YELLOW (YELLOW); KETONES URINE NEGATIVE (NEGATIVE); LEUKOCYTE ESTERASE URINE 2+ (NEGATIVE); NITRITE URINE NEGATIVE (NEGATIVE); OCCULT BLOOD URINE NEGATIVE (NEGATIVE); PH URINE 7.5 (4.5-8.0); PROTEIN URINE NEGATIVE (NEGATIVE); SPECIFIC GRAVITY URINE 1.021 (1.005-1.030)
[2022-09-09] MEDS ORDERED: BETA50CR5 TP ×3 (19:19→19:59)
[2022-09-09] MEDS ORDERED: MORPHINE SULFATE 4 MG/ML CPJ (NOT FOR IM USE) IV ONE (19:30)
[2022-09-09] MEDS ORDERED: ONDANSETRON HCL 4MG/2ML INJ IV ONE (19:30)
[2022-09-09 19:55] VITALS: BP 132/75
== END 2022-09-09 19:56 | disposition home or self-care (01) ==
LOC: ER 15:47
DX: R10.10 Upper abdominal pain, unspecified (principal); Z88.0 Allergy status to penicillin; Z88.6 Allergy status to analgesic agent; Z88.1 Allergy status to other antibiotic agents; Z88.5 Allergy status to narcotic agent; Z90.49 Acquired absence of other specified parts of digestive tract; Z79.899 Other long term (current) drug therapy
CPT/HCPCS: 36415; 71045; 74176; 80053; 81003; 81025; 82270; 83690; 84484; 84703; 85025; 85610; 93005; 96374; 96375; 96376; 99285; J2270; J2405

== ENCOUNTER 2023-01-05 19:05 | Emergency (ER) | payer OTHER, MEDICAID ==
[~2023-01-05] VITALS: Ht 157.5 cm; Wt 73.0 kg
[~2023-01-05 19:05] MED LIST changes: +BETA50CR5 TP
[2023-01-05 19:54] VITALS: BP 130/87; PULSE 78; RESP 16; TEMP 98.2; O2SAT 100
[2023-01-05 20:45] LABS: EOSINOPHILS % 6.9 % (0.0-5.0); HEMATOCRIT. 33.7 % (36.0-48.0); HEMOGLOBIN. 11.4 g/dL (12.0-16.0); LYMPHOCYTES % 38.6 % (20.0-50.0); MEAN CORPUSCULAR HEMOGLOBIN 30.5 pg (28.0-32.0); MEAN CORPUSCULAR HGB CONC 33.8 g/dL (31.0-37.0); MEAN CORPUSCULAR VOLUME 90.3 fL (81.0-99.0); MEAN PLATELET VOLUME 7.8 fl (7.4-10.4); MONOCYTES % 7.9 % (2.0-8.0); NEUTROPHILS % 45.6 % (40.0-76.0); PLATELET 245 x1000/uL (130-400); RED BLOOD CELL COUNT 3.73 mill/uL (4.2-5.4); WHITE BLOOD COUNT 4.9 x1000/uL (4.5-11.0)
[2023-01-05 20:58] LABS: CHLORIDE 115 mEq/L (98-107); INDEX HEMOLYSI 1 (1-3); INDEX ICTERIC 1 (1-4); INDEX LIPEMIC 1 (1-3); POTASSIUM 3.5 mEq/L (3.5-5.1); SODIUM 141 mEq/L (136-145)
[2023-01-05 21:10] LABS: ALANINE AMINOTRANSFERASE 12 IU/L (13-61); ALBUMIN 3.3 g/dL (3.4-5.0); ASPARTATE AMINOTRANSFERASE 4 IU/L (15-37); BILIRUBIN TOTAL 0.5 mg/dL (0.1-1.0); CALCIUM 8.6 mg/dL (8.5-10.1); CARBON DIOXIDE 20 mEq/L (21-32); CREATININE 0.7 mg/dL (0.6-1.3); GLUCOSE 98 mg/dL (70-105); PROTEIN TOTAL 6.5 g/dL (6.0-8.3); TROPONIN I HIGH SENSITIVITY 7 ng/L (<54); UREA NITROGEN BLOOD 15 mg/dL (7-21)
[2023-01-05] MEDS ORDERED: DICYCLOMINE HCL 10MG CAPSULE PO NR (21:18)
[2023-01-05] MEDS ORDERED: MAGNESIUM/ALUMINUM HYDROXIDE/SIMETHICONE 30ML UDC PO STA (21:28)
[2023-01-05] MEDS ORDERED: ONDANSETRON HCL 4MG/2ML INJ IV STA (21:28)
[2023-01-05] MEDS ORDERED: DICYCLOMINE 10 MG/5 ML ORAL SYR PO STA (21:28)
[2023-01-05] MEDS ORDERED: PANTOPRAZOLE SODIUM 40 MG/VIAL IV ONE (21:45)
[2023-01-06] MEDS ORDERED: SUCRALFATE 1G TABLET PO SCH (09:00)
== END 2023-01-05 22:16 | disposition home or self-care (01) ==
LOC: ER 19:05
DX: R10.9 Unspecified abdominal pain (principal); K92.0 Hematemesis; Z90.49 Acquired absence of other specified parts of digestive tract; Z98.890 Other specified postprocedural states; Z79.899 Other long term (current) drug therapy; Z88.0 Allergy status to penicillin; Z88.2 Allergy status to sulfonamides
CPT/HCPCS: 36415; 80053; 84484; 85025; 99283; C9113; J2405

== ENCOUNTER 2023-06-11 14:07 | Emergency (ER) | payer OTHER, MEDICAID ==
[~2023-06-11] VITALS: Ht 157.5 cm; Wt 73.0 kg
[2023-06-11 15:09] VITALS: O2SAT 99
[2023-06-11 22:00] VITALS: TEMP 98.2
[2023-06-11 22:07] LABS: BASOPHILS % 0.9 % (0.0-2.0); EOSINOPHILS % 7.7 % (0.0-5.0); HEMATOCRIT. 30.5 % (36.0-48.0); LYMPHOCYTES % 35.2 % (20.0-50.0); MEAN CORPUSCULAR HEMOGLOBIN 28.4 pg (28.0-32.0); MEAN CORPUSCULAR HGB CONC 32.9 g/dL (31.0-37.0); MEAN CORPUSCULAR VOLUME 86.4 fL (81.0-99.0); MEAN PLATELET VOLUME 7.8 fl (7.4-10.4); MONOCYTES % 7.8 % (2.0-8.0); NEUTROPHILS % 48.4 % (40.0-76.0); PLATELET 205 x1000/uL (130-400); RED BLOOD CELL COUNT 3.53 mill/uL (4.2-5.4); RED CELL DISTRIBUTION WIDTH 18.7 % (11.6-14.6); WHITE BLOOD COUNT 3.9 x1000/uL (4.5-11.0)
[2023-06-11 22:17] LABS: HCG SCREEN NEGATIVE
[2023-06-11 22:21] LABS: ALANINE AMINOTRANSFERASE 8 IU/L (10-49); ALBUMIN 3.9 g/dL (3.2-4.8); ASPARTATE AMINOTRANSFERASE < 8 IU/L (<34); BILIRUBIN TOTAL 0.5 mg/dL (0.1-1.0); CALCIUM 8.8 mg/dL (8.7-10.4); CARBON DIOXIDE 20 mEq/L (21-32); CHLORIDE 112 mEq/L (98-107); CREATININE 0.7 mg/dL (0.6-1.0); GLUCOSE 81 mg/dL (70-105); POTASSIUM 3.7 mEq/L (3.5-5.1); PROTEIN TOTAL 6.3 g/dL (6.0-8.3); SODIUM 140 mEq/L (136-145); UREA NITROGEN BLOOD 14 mg/dL (9-23)
[2023-06-11] MEDS: ONDANSETRON HCL 4MG/2ML INJ IV ONE (22:27)
[2023-06-11] MEDS: MORPHINE SULFATE 2 MG/ML CPJ (NOT FOR IM USE) IV ONE (22:27)
[2023-06-12] VITALS: BP 129/79; PULSE 86; RESP 14
[2023-06-12 00:58] LABS: CLARITY URINE TURBID (CLEAR); COLOR URINE YELLOW (YELLOW); GLUCOSE URINE NEGATIVE (NEGATIVE); KETONES URINE 1+ (NEGATIVE); LEUKOCYTE ESTERASE URINE 3+ (NEGATIVE); NITRITE URINE NEGATIVE (NEGATIVE); OCCULT BLOOD URINE NEGATIVE (NEGATIVE); PROTEIN URINE NEGATIVE (NEGATIVE); SPECIFIC GRAVITY URINE 1.015 (1.005-1.030)
[2023-06-12] MEDS ORDERED: CEFTRIAXONE 1GM PREMIX 50 ML IV ONE (01:30)
[2023-06-12] MEDS ORDERED: FOSF3PAC PO (01:37)
[2023-06-12] MEDS ORDERED: CEFP100T8 MT (02:13)
[2023-06-12] MEDS ORDERED: DIPH25CA83 PO (02:18)
[2023-06-12 03:51] LABS: SQUAMOUS EPITHELIAL CELL URINE FEW /lpf (RARE/1+)
[2023-06-12 03:54] LABS: RBC URINE 0-2 /hpf (0-2)
[2023-06-12 03:56] LABS: BACTERIA URINE 1+
[2023-06-12 03:57] LABS: AMORPHOUS SEDIMENT URINE 1+ /lpf
== END 2023-06-12 02:35 | disposition home or self-care (01) ==
LOC: ER 14:07
DX: N39.0 Urinary tract infection, site not specified (principal); Z90.49 Acquired absence of other specified parts of digestive tract; Z98.890 Other specified postprocedural states; Z79.899 Other long term (current) drug therapy; Z88.2 Allergy status to sulfonamides; Z88.0 Allergy status to penicillin; Z88.6 Allergy status to analgesic agent; Z88.1 Allergy status to other antibiotic agents; Z88.8 Allergy status to other drugs, medicaments and biological substances; Z88.5 Allergy status to narcotic agent
CPT/HCPCS: 99285; 96374; 71045; 96375; 80053; 84703; 83690; 85025; 36415; 74176; 81003; 87086; J2405; J2270

== ENCOUNTER 2024-07-31 09:36 | Emergency (ER) | payer OTHER, MEDICAID ==
[~2024-07-31] VITALS: Ht 157.5 cm; Wt 77.1 kg
[~2024-07-31 09:36] MED LIST changes: -BETA50CR5 TP; -FOSF3PAC MT; -MULT-1146 PO; +ONDA4TAB50 MT
[2024-07-31 09:39] VITALS: O2SAT 100
[2024-07-31 09:49] VITALS: TEMP 36.8; O2SAT 99
[2024-07-31] MEDS: DIPHENHYDRAMINE HCL/ZINC ACET 28 GM CREAM TOP STA (10:18)
[2024-07-31] MEDS: SODIUM CHLORIDE 0.9% 1,000 ML IV ONE (11:04)
[2024-07-31] MEDS: FAMOTIDINE 20MG/2ML VIAL IV ONE (11:08)
[2024-07-31] MEDS: ONDANSETRON HCL 4MG/2ML INJ IV ONE (11:08)
[2024-07-31 11:11] LABS: BASOPHILS % 0.7 % (0.0-2.0); EOSINOPHILS % 4.6 % (0.0-5.0); HEMATOCRIT. 35.2 % (36.0-48.0); HEMOGLOBIN. 11.3 g/dL (12.0-16.0); LYMPHOCYTES % 28.3 % (20.0-50.0); MEAN CORPUSCULAR HEMOGLOBIN 28.1 pg (28.0-32.0); MEAN CORPUSCULAR VOLUME 87.9 fL (81.0-99.0); MEAN PLATELET VOLUME 7.6 fl (7.4-10.4); MONOCYTES % 9.2 % (2.0-8.0); NEUTROPHILS % 57.2 % (40.0-76.0); PLATELET 280 x1000/uL (130-400); RED BLOOD CELL COUNT 4.01 mill/uL (4.2-5.4); RED CELL DISTRIBUTION WIDTH 15.5 % (11.6-14.6)
[2024-07-31] MEDS: PANTOPRAZOLE SODIUM 40 MG/VIAL IV ONE (11:27)
[2024-07-31 11:29] LABS: CHLORIDE 109 mEq/L (98-107); SODIUM 143 mEq/L (136-145)
[2024-07-31 11:30] LABS: CALCIUM 9.5 mg/dL (8.7-10.4); CARBON DIOXIDE 25 mEq/L (21-32)
[2024-07-31 11:35] LABS: CREATININE 0.7 mg/dL (0.6-1.0); GLUCOSE 77 mg/dL (70-105); UREA NITROGEN BLOOD 16 mg/dL (9-23)
[2024-07-31 11:37] LABS: ALANINE AMINOTRANSFERASE 20 IU/L (10-49); ASPARTATE AMINOTRANSFERASE 9 IU/L (<34); BILIRUBIN DIRECT 0.1 mg/dL (<=3.0)
[2024-07-31 11:38] LABS: BILIRUBIN TOTAL 0.4 mg/dL (0.1-1.0); PROTEIN TOTAL 7.1 g/dL (6.0-8.3)
[2024-07-31 11:40] LABS: CLARITY URINE TURBID (CLEAR); COLOR URINE YELLOW (YELLOW); GLUCOSE URINE NEGATIVE (NEGATIVE); KETONES URINE NEGATIVE (NEGATIVE); LEUKOCYTE ESTERASE URINE 1+ (NEGATIVE); NITRITE URINE NEGATIVE (NEGATIVE); OCCULT BLOOD URINE NEGATIVE (NEGATIVE); PH URINE 8.5 (4.5-8.0); PROTEIN URINE NEGATIVE (NEGATIVE); SPECIFIC GRAVITY URINE 1.016 (1.005-1.030)
[2024-07-31 11:42] LABS: HCG SCREEN INDETERMINATE
[2024-07-31 12:00] LABS: TROPONIN I HIGH SENSITIVITY < 4 ng/L (3.0-34)
[2024-07-31 12:09] LABS: AMORPHOUS SEDIMENT URINE 2+ /lpf; MUCUS URINE TRACE /lpf (< = 2+)
[2024-07-31 12:10] LABS: SQUAMOUS EPITHELIAL CELL URINE 1+ /lpf (RARE/1+)
[2024-07-31 12:11] LABS: RBC URINE NONE SEEN /hpf (0-2)
[2024-07-31 12:12] LABS: BACTERIA URINE TRACE
[2024-07-31 13:41] VITALS: BP 120/69; PULSE 91; RESP 14
[2024-07-31] MEDS: MORPHINE SULFATE 2 MG/ML INJ (NOT FOR IM USE) IV ONE (13:41)
[2024-07-31] MEDS ORDERED: PROT40 MT (16:10)
[2024-07-31] MEDS ORDERED: IOHEXOL-300 100 ML BOTTLE ONE (22:52)
== END 2024-07-31 16:27 | disposition home or self-care (01) ==
LOC: ER 09:36
DX: R10.13 Epigastric pain (principal); Z88.2 Allergy status to sulfonamides; Z88.1 Allergy status to other antibiotic agents; Z88.0 Allergy status to penicillin; Z90.49 Acquired absence of other specified parts of digestive tract; Z79.899 Other long term (current) drug therapy; Z98.890 Other specified postprocedural states; Z98.84 Bariatric surgery status; Z97.5 Presence of (intrauterine) contraceptive device
CPT/HCPCS: 99285; 74177; 96365; 96375; 96366; 80076; 80048; 81003; 81025; 84703; 84702; 83690; 85025; 84484; 36415; 93005; Q9967; J3490; J2405; J2470; J2270; J7030